=== PATIENT | female | born 1965 | race Caucasian/White ===

== ENCOUNTER 2022-02-24 09:47 | Outpatient (CLI) | payer OTHER, SELFPAY ==
[2022-02-24 10:25] LABS: INR, Point of Care* 1.4 (0.8-1.4)
== END 2022-02-24 09:48 | disposition home or self-care (01) ==
LOC: FRMREF 09:50
PROVIDERS: PCP Family Medicine; Visit Provider Family Medicine
DX: K21.9 Gastro-esophageal reflux disease without esophagitis (principal); Z79.01 Long term (current) use of anticoagulants
CPT/HCPCS: 85610

== ENCOUNTER 2022-03-22 12:26 | Outpatient (CLI) | payer OTHER, SELFPAY ==
[2022-03-22 21:22] LABS: Chloride* 106 mmol/L (96-114); Potassium* 4.3 mmol/L (3.6-5.1); Sodium* 138 mmol/L (135-149)
[2022-03-22 21:25] LABS: Blood Urea Nitrogen* 8 mg/dL (7-30); Carbon Dioxide* 20 mmol/L (20-32); Creatinine* 0.6 mg/dL (0.5-1.5); Estimated Glomerular Filt Rate 107 ml/min; Glucose* 104 mg/dL (60-115)
== END 2022-03-22 12:27 | disposition home or self-care (01) ==
PROVIDERS: PCP Family Medicine; Visit Provider Family Medicine
DX: K21.9 Gastro-esophageal reflux disease without esophagitis (principal); R07.81 Pleurodynia; Z79.01 Long term (current) use of anticoagulants
CPT/HCPCS: 80048

== ENCOUNTER 2024-03-05 07:34 | Outpatient (CLI) | payer OTHER, SELFPAY ==
[2024-03-05 14:56] LABS: Chlamydia DNA Amplified* NOT DETECTED (No Detected); GC DNA Amplified* NOT DETECTED (No Detected)
== END 2024-03-05 07:35 | disposition home or self-care (01) ==
PROVIDERS: PCP Family Medicine; Visit Provider Family Medicine
DX: Z11.3 Encounter for screening for infections with a predominantly sexual mode of transmission (principal); Z11.59 Encounter for screening for other viral diseases; Z13.228 Encounter for screening for other metabolic disorders; Z13.220 Encounter for screening for lipoid disorders; Z13.29 Encounter for screening for other suspected endocrine disorder
CPT/HCPCS: 80053; 80061; 84443; 86592; 86703; 86803; 87491; 87591

== ENCOUNTER 2024-05-31 13:52 | Outpatient (CLI) | payer OTHER, SELFPAY ==
--- NOTE | 2024-05-31 14:40 | CRLHL7_ITS ---
For Patients: As a result of the Century Cures Act, medical imaging exams and procedure reports are released immediately into your electronic medical record. You may view this report before your referring provider. If you have questions, please contact your health care provider. BILATERAL SCREENING MAMMOGRAM WITH COMPUTER-AIDED DETECTION AND TOMOSYNTHESIS TECHNIQUE: CC and MLO views were obtained. These mammographic images have been obtained using full-field digital technique. These mammographic images were interpreted with the benefit of computer-aided detection. Breast tomosynthesis was used in this interpretation. COMPARISON FILM: 07/11/18, 06/15/17, 08/06/15. FINDINGS: There are scattered areas of fibroglandular density. IMPRESSION: There is no radiographic evidence for malignancy. ASSESSMENT: BI-RADS Category 1: Negative RECOMMENDATION: Routine screening mammogram in 1 year. A lay language report of this examination will be provided to the patient. SALVADOR ZIMMER M.D. Diagnostic Radiologist [email or web address] Transcribed: 06/07/2024, 3:[address]/Dictated by: Salvador Zimmer MD @ 06/07/2024 12:45:00 PM (Electronically Signed)
== END 2024-05-31 13:53 | disposition home or self-care (01) ==
LOC: MAMMO 13:54
PROVIDERS: PCP Family Medicine; Visit Provider Family Medicine
DX: Z12.31 Encounter for screening mammogram for malignant neoplasm of breast (principal)
CPT/HCPCS: 77063; 77067

== ENCOUNTER 2025-06-28 09:52 | Outpatient (CLI) | payer OTHER, SELFPAY ==
--- NOTE | 2025-06-28 10:15 | CRLHL7_ITS ---
For Patients: As a result of the Century Cures Act, medical imaging exams and procedure reports are released immediately into your electronic medical record. You may view this report before your referring provider. If you have questions, please contact your health care provider. Technique: Single contrast timed barium esophagram study performed with thin barium. Fluoroscopy time 28 seconds. Indication: Chronic GERD Comparison: None. Findings: Postop changes of Arturo fundoplication with partial rapid noted. No obstruction. Normal esophageal motility. Contrast is mostly clear of the distal esophagus at 1 minute and completely clear of contrast by 5 minutes. Impression: No achalasia or obstruction. Dictated by Salvador Dc MD @ 06/28/2025 11:23:40 AM (Electronically Signed)
== END 2025-06-28 09:53 | disposition home or self-care (01) ==
LOC: RAD 09:53
PROVIDERS: PCP Family Medicine; Visit Provider Internal Medicine
DX: K21.9 Gastro-esophageal reflux disease without esophagitis (principal)
CPT/HCPCS: 74220